=== PATIENT | female | born 1990 | race Caucasian/White ===

== ENCOUNTER 2023-02-23 05:48 | Emergency (ER) | payer MEDICAID, SELFPAY ==
[2023-02-23 05:48] VITALS: BP 132/106; PULSE 126; RESP 16; TEMP 36.6; O2SAT 99; BMI 25.0
--- NOTE | 2023-02-23 07:04 | EX.ED.DYSGE1 ---
HPI History of Present Illness Chief Complaint: Overdose Informant: patient and EMS Narrative Narrative: Patient is a 32-year-old female with no significant past medical history. She states she was at a [place] party and she was drinking and then the next thing she knew knows that she is waking up by EMS. EMS reports that they were called after there were multiple overdoses and it took approximately 3 doses of Narcan to wake the patient up. The patient arrives ER and reports she has no complaints PFSH PFSH Allergy/AdvReac Type Severity Reaction Status Date / Time Sulfa (Sulfonamide Allergy Rash Verified 12/17/17 12:40 Antibiotics) Surgical History History of anterior cruciate ligament surgery Social History (Updated 12/17/17 @ 14:56 by Jose SANTANA, PA) Smoking Status: Current every day smoker tobacco type: cigarettes and e-cigarettes alcohol intake: never ROS ROS ED Constitutional Constitutional ED: Denies chills or fever(s) Eyes Eyes: Denies change in vision ENT ENT ED: Denies sore throat Cardiovascular Cardiovascular: Denies chest pain Respiratory/Chest Respiratory/Chest: Denies cough or dyspnea Gastrointestinal Gastrointestinal: Denies abdominal pain, diarrhea, nausea or vomiting Genitourinary Genitourinary ED: Denies dysuria Musculoskeletal Musculoskeletal: Denies myalgias Integumentary Denies rash Neurologic Neurologic: Denies headache(s) Psychiatric Psychiatric: Denies suicidal ideation or suicidal thoughts Hematologic/Lymphatic Hematologic/Lymphatic: Denies easy bleeding or easy bruising EXAM Physical Exam Const Vital Signs: 02/23/23 05:48 Temperature 97.8 F Temperature Source Temporal Pulse Rate 126 H Respiratory Rate 16 Blood Pressure 132/106 H Blood Pressure Mean 114 Pulse Ox 99 Positive well nourished and well developed General Appearance ED: well developed HEENT HEENT Narrative: Normocephalic atraumatic No tongue or lip swelling; airway edema or compromise No signs of infection in the posterior pharynx Eyes PERRL and EOMs intact bilaterally General Eye ED: Negative for scleral icterus Neck supple Neck Narrative: No nuchal rigidity or meningeal signs noted Resp normal respiratory effort and clear to auscultation bilaterally Cardio regular rhythm Rate: tachycardic and other Other Details: Tachycardic rate with regular rhythm No murmurs rubs or gallops GI non-tender, non-distended and no masses Auscultation: hypoactive bowel sounds Palpation: soft Extremity normal to inspection Neuro oriented x3, CN's II-XII intact bilaterally and no sensory deficits noted Sensorium / Orientation: alert Motor Exam: strength 5/5 throughout Psych mental status grossly normal Skin no rashes or lesions noted MDM MDM MDM Narrative Medical decision making narrative: Patient arrived to the ER hypertensive otherwise in no acute distress. EMS reported being called to a multiple overdose scene and it took 3 doses of Narcan to wake the patient up which correlates with a opioid overdose. The patient states that she was not trying to harm herself and that this was accidental. At this time she is not requiring any type of supplemental oxygen she is not in respiratory distress and therefore do not feel there is need for a psychiatric workup or any type of imaging study. The patient was watched in the ER for over 1 hour and this is well above the 30-minute half-life of Narcan and as the patient is awake and alert this indicates that she is of low risk for progressing to depressed mental status or respiratory distress and is otherwise safe for discharge History & Record Review Discussion w/independent historian: EMS personnel and Patient Discharge Plan Triage Chief Complaint: Overdose Other Complaint: ETOH Intox ED Provider: Isak Hope Dx/Rx/DC Orders Clinical Impression: Opioid overdose Instructions: Naloxone Nasal for Overdose Steps, ED Overdose, Opiate Primary Care Provider: Care Physician,No Primary Referrals: Care Physician,No Primary [Primary Care Provider] - Disposition Disposition: Home, Self Care Discharge Date/Time: 02/23/23 07:16
== END 2023-02-23 07:16 | disposition home or self-care (01) ==
PROVIDERS: Emergency Provider Emergency Medicine; Referring Provider Emergency Medicine; Visit Provider Emergency Medicine
DX: T40.2X1A Poisoning by other opioids, accidental (unintentional), initial encounter (principal); F17.210 Nicotine dependence, cigarettes, uncomplicated; F17.290 Nicotine dependence, other tobacco product, uncomplicated
CPT/HCPCS: 99282